=== PATIENT | female | born 1995 | race Caucasian/White ===

== ENCOUNTER 2017-12-11 12:54 | Emergency (ER) | payer OTHER ==
[~2017-12-11] VITALS: Ht 162.6 cm; Wt 58.1 kg
[2017-12-11 13:02] VITALS: TEMP 36.6; Ht 162.6 cm; Wt 58.1 kg
[2017-12-11] MEDS ORDERED: SODIUM CHLORIDE 0.9% 1000ML 1,000 ML IV STA (13:18)
[2017-12-11] MEDS ORDERED: ONDANSETRON INJ 2 MG/ML 2 ML VIAL IV STA (13:18)
[2017-12-11] MEDS ORDERED: FAMOTIDINE 20MG/5ML IV PUSH IV STA (13:18)
--- NOTE | 2017-12-11 13:27 | EMERGENCY ROOM VISIT NOTE ---
History Report prepared by Ayana: Priya Urrutia Under the Supervision of: Dr. Theo Ortez M.D. First contact with patient: 13:16 Chief Complaint: NAUSEA Stated Complaint: NAUSEA, BURNING STOMACH PAIN CENTRALLY LOCATED Nursing Triage Summary: Pt c/o bad stomach pain "right in the center" Pain began 1 hour ago. Pt associated nausea. Denies n/d/constipation Last BM this am. History of Present Illness The patient is a 22 year old female who presents to the Emergency Room with complaints of persistent mid abdominal pain that began one hour ago. The patient states a history of IBS, noting she gets diarrhea once or twice a week. She notes that her symptoms feel different from when she has IBS, noting she was unable to move earlier due to the severe abdominal pain. The patient states she has been nauseous, but denies vomiting. She denies any dysuria, headaches, cough, or nasal congestion. She reports that she has not had any issues with her gallbladder in the past. The patient reports that her last normal menstrual period was 2 weeks ago. She notes that she is not currently under any stress and denies being diagnosed with reflux in the past. Source of History: patient Onset: one hour ago Position: abdomen (mid) Timing: other (persistent) Associated Symptoms: + nausea, + diarrhea, No headache, No cough Review of Systems See HPI for pertinent positives and negatives. A total of ten systems were reviewed and were otherwise negative. Past Medical & Surgical Medical Problems: (1) Irritable bowel syndrome Social History Smoking Status: Never Smoker Current/Historical Medications Scheduled Control Pills ( Control Pills), 1 TAB PO DAILY Eluxadoline (Viberzi), 1 TAB PO DAILY Famotidine (Pepcid), 20 MG PO BID Ondasetron Odt (Zofran Odt), 4 MG SL Q6H Allergies Coded Allergies: Doxycycline (Unverified Adverse Reaction, Unknown, SEVERE DIARRHEA, 12/11/17 ) Physical Exam Vital Signs Date Time Temp Pulse Resp B/P (MAP) Pulse Ox O2 Delivery O2 Flow Rate FiO2 12/11/17 17:51 78 18 108/64 94 12/11/17 14:55 74 16 108/74 95 12/11/17 13:02 36.6 97 16 123/74 99 Room Air Physical Exam GENERAL: Awake, alert, anxious, well-appearing, in no distress HENT: Dry mucous membranes. Normocephalic, atraumatic. Oropharynx unremarkable. EYES: Normal conjunctiva. Sclera non-icteric. NECK: Supple. No nuchal rigidity. FROM. No JVD. RESPIRATORY: Clear to auscultation. CARDIAC: Regular rate, normal rhythm. Extremities warm and well perfused. Pulses equal. ABDOMEN: Mild epigastric discomfort, no peritoneal signs, negative Davey's signs. Soft, non-distended. No tenderness to palpation. No rebound or guarding. No masses. RECTAL: Deferred. MUSCULOSKELETAL: Chest examination reveals no tenderness. The back is symmetrical on inspection without obvious abnormality. There is no CVA tenderness to palpation. No joint edema. LOWER EXTREMITIES: Calves are equal size bilaterally and non-tender. No edema. No discoloration. NEURO: Normal sensorium. No sensory or motor deficits noted. SKIN: No rash or jaundice noted. Medical Decision & Procedures Laboratory Results 12/11/17 13:43 Red Blood Count 4.70, Mean Corpuscular Volume 88.3, Mean Corpuscular Hemoglobin 29.8, Mean Corpuscular Hemoglobin Concent 33.7, Mean Platelet Volume 9.8, Neutrophils (%) (Auto) 64.3, Lymphocytes (%) (Auto) 26.7, Monocytes (%) (Auto) 7.5, Eosinophils (%) (Auto) 1.1, Basophils (%) (Auto) 0.2, Neutrophils # (Auto) 2.98, Lymphocytes # (Auto) 1.24, Monocytes # (Auto) 0.35, Eosinophils # (Auto) 0.05, Basophils # (Auto) 0.01 12/11/17 13:43 Test 12/11/17 13:43 12/11/17 14:53 White Blood Count 4.64 K/uL (4.8-10.8) Red Blood Count 4.70 M/uL (4.2-5.4) Hemoglobin 14.0 g/dL (12.0-16.0) Hematocrit 41.5 % (37-47) Mean Corpuscular Volume 88.3 fL (80-100) Mean Corpuscular Hemoglobin 29.8 pg (25-34) Mean Corpuscular Hemoglobin Concent 33.7 g/dl (32-36) Platelet Count 142 K/uL (130-400) Mean Platelet Volume 9.8 fL (7.4-10.4) Neutrophils (%) (Auto) 64.3 % Lymphocytes (%) (Auto) 26.7 % Monocytes (%) (Auto) 7.5 % Eosinophils (%) (Auto) 1.1 % Basophils (%) (Auto) 0.2 % Neutrophils # (Auto) 2.98 K/uL (1.4-6.5) Lymphocytes # (Auto) 1.24 K/uL (1.2-3.4) Monocytes # (Auto) 0.35 K/uL (0.11-0.59) Eosinophils # (Auto) 0.05 K/uL (0-0.5) Basophils # (Auto) 0.01 K/uL (0-0.2) RDW Standard Deviation 40.9 fL (36.4-46.3) RDW Coefficient of Variation 12.7 % (11.5-14.5) Immature Granulocyte % (Auto) 0.2 % Immature Granulocyte # (Auto) 0.01 K/uL (0.00-0.02) Erythrocyte Sedimentation Rate 3 mm/hr (0-21) Anion Gap 8.0 mmol/L (3-11) Est Creatinine Clear Calc Drug Dose 99.4 ml/min Estimated GFR () 126.8 Estimated GFR (Non- 109.4 BUN/Creatinine Ratio 14.8 (10-20) Calcium Level 9.1 mg/dl (8.5-10.1) Total Bilirubin 1.2 mg/dl (0.2-1) Direct Bilirubin 0.3 mg/dl (0-0.2) Aspartate Amino Transf (AST/SGOT) 13 U/L (15-37) Alanine Aminotransferase (ALT/SGPT) 19 U/L (12-78) Alkaline Phosphatase 48 U/L (45-117) C-Reactive Protein < 0.29 mg/dl (0-0.29) Total Protein 7.8 gm/dl (6.4-8.2) Albumin 4.1 gm/dl (3.4-5.0) Lipase 134 U/L (73-393) Human Chorionic Gonadotropin, Qual NEG (NEG) Influenza Type A Antigen Neg for Influ A (NEG) Influenza Type B Antigen Neg for Influ B (NEG) Laboratory results reviewed by me Medications Administered Medications (Trade) Dose Ordered Sig/Ashleigh Route Start Time Stop Time Status Last Admin Dose Admin Sodium Chloride 1,000 ml @ 999 mls/hr Q1H1M STAT IV 12/11/17 13:18 12/11/17 14:18 DC 12/11/17 13:50 999 MLS/HR Ondansetron HCl (Zofran Inj) 4 mg NOW STAT IV 12/11/17 13:18 12/11/17 13:25 DC 12/11/17 13:52 4 MG Famotidine (Pepcid 20mg Iv Push) 20 mg ONE STAT IV 12/11/17 13:18 12/11/17 13:25 DC 12/11/17 13:50 20 MG Lidocaine HCl (Viscous Lidocaine 2% Soln) 20 ml STK-MED ONCE .ROUTE 12/11/17 14:50 12/11/17 14:51 DC 12/11/17 14:52 20 ML Al Hydroxide/Mg Hydroxide (Maalox Susp) 30 ml STK-MED ONCE .ROUTE 12/11/17 14:50 12/11/17 14:51 DC 12/11/17 14:52 30 ML ED Course 1321: The patient was evaluated in room C12. A complete history and physical exam was performed. Medical Decision I reviewed the patient's past medical history, medications, and the nursing notes as described above. The patient's presentation and history were concerning for biliary etiology, gastritis, gastroenteritis, IBS, and peptic ulcer. The patient is a 22-year-old woman with a past medical history of IBS on Viberzi presents to the emergency Department with upper abdominal pain, nausea vomiting, diarrhea per hpi. On arrival the patient is anxious appearing but in no distress, afebrile stable vital signs. On exam the patient has mild epigastric and right upper quadrant discomfort but no discrete tenderness. Negative Davey sign. Bedside ultrasound negative for gallstones or pericholecystic fluid. Labs unremarkable including ESR, CRP within normal limits. WBC 4.6 c/w viral illness. Patient initially feeling improved after IV fluids and IV Pepcid. However then had episode of nausea and then several episodes of diarrhea. On reevaluation patient feeling improved from that episode. Given the reassuring lab work, exam and vital signs are likely have an emergent process at this time. Sx most consistent with a gastritis/ gastroenteritis. The patient was given specimen containers for repeat episodes of diarrhea which she can take to [facility] for testing. Plan for [facility] f/u tomorrow. Findings and plan for follow-up reviewed with patient. Patient agreeable and d/c 'd per discharge instructions. Medication Reconcilliation Current Medication List: was personally reviewed by me Blood Pressure Screening Patient's blood pressure: Normal blood pressure Blood pressure disposition: Did not require urgent referral Impression Primary Impression: Upper abdominal pain Additional Impressions: Gastritis Acute gastroenteritis Scribe Attestation The scribe's documentation has been prepared under my direction and personally reviewed by me in its entirety. I confirm that the note above accurately reflects all work, treatment, procedures, and medical decision making performed by me. Departure Information Dispostion Home / Self-Care Prescriptions Ondasetron Odt (ZOFRAN ODT) 4 Mg Tab 4 MG SL Q6H for Nausea, #10 TAB Prov: Bakari Ortiz M.D. 12/11/17 Famotidine (PEPCID) 20 Mg Tab 20 MG PO BID for 7 Days, #14 TAB Prov: Bakari Ortiz M.D. 12/11/17 Referrals No Doctor, Assigned (PCP) Forms HOME CARE DOCUMENTATION FORM, IMPORTANT VISIT INFORMATION Patient Instructions ED Abdominal Pain Unkn Cause, ED Gastritis, My [facility] Additional Instructions Please follow up with [facility] tomorrow for re-evaluation. The cause of your symptoms is unclear at this time but may be due to a gastritis or gastroenteritis Otherwise, your exam, ultrasound, and lab results did not show signs of an emergent condition at this time. Acetaminophen pain and fevers as needed. Zofran as needed for nausea. Pepcid for acid reduction. Drink plenty of fluids to ensure hydration. Return to the emergency department for worsening symptoms as described in the accompanying instructions. Problem Qualifiers
[2017-12-11 13:54] LABS: BASO % 0.2 %; BASO ABS # 0.01 K/uL (0-0.2); EOS % 1.1 %; EOS ABS # 0.05 K/uL (0-0.5); HEMATOCRIT 41.5 % (37-47); IG# 0.01 K/uL (0.00-0.02); LYMPH % 26.7 %; LYMPH ABS # 1.24 K/uL (1.2-3.4); MEAN CELL VOLUME 88.3 fL (80-100); MEAN CORPUSCULAR HEMOGLOBIN 29.8 pg (25-34); MEAN CORPUSCULAR HGB CONC 33.7 g/dl (32-36); MEAN PLATELET VOLUME 9.8 fL (7.4-10.4); MONO % 7.5 %; MONO ABS # 0.35 K/uL (0.11-0.59); NEUT % 64.3 %; NEUT ABS # 2.98 K/uL (1.4-6.5); PLATELET COUNT 142 K/uL (130-400); RED CELL DISTRIBUTION WIDTH CV 12.7 % (11.5-14.5); RED CELL DISTRIBUTION WIDTH SD 40.9 fL (36.4-46.3); WHITE BLOOD COUNT 4.64 K/uL (4.8-10.8)
[2017-12-11 14:11] LABS: ALBUMIN 4.1 gm/dl (3.4-5.0); ALT/SGPT 19 U/L (12-78); AST/SGOT 13 U/L (15-37); BLOOD UREA NITROGEN 12 mg/dl (7-18); CALCIUM 9.1 mg/dl (8.5-10.1); CARBON DIOXIDE 26 mmol/L (21-32); CREATININE 0.78 mg/dl (0.60-1.20); GLUCOSE 93 mg/dl (70-99); LIPASE 134 U/L (73-393); POTASSIUM 3.5 mmol/L (3.5-5.1); SODIUM 139 mmol/L (136-145)
[2017-12-11 14:14] LABS: ALKALINE PHOSPHATASE 48 U/L (45-117); TOTAL PROTEIN 7.8 gm/dl (6.4-8.2)
[2017-12-11] MEDS ORDERED: GI COCKTAIL PO STA (14:23)
[2017-12-11] MEDS ORDERED: BCPILLS PO (14:37)
[2017-12-11] MEDS ORDERED: ELUX1TAB2 PO (14:37)
[2017-12-11] MEDS ORDERED: LIDOCAINE HCL 2% VISC SOLN 20 ML UDC ONE (14:50)
[2017-12-11] MEDS ORDERED: ALUMINUM/MAGNESIUM SUSP 30 ML UDC ONE (14:50)
[2017-12-11 15:35] LABS: INFLUENZA B ANTIGEN Neg for Influ B (NEG)
[2017-12-11] MEDS ORDERED: FAMO20TA9 PO (17:04)
[2017-12-11] MEDS ORDERED: ONDA4TAB10 SL (17:04)
[2017-12-11 17:51] VITALS: BP 108/64; PULSE 78; O2SAT 94
== END 2017-12-11 17:53 | disposition home or self-care (01) ==
LOC: C.EDB 12:56 → C.EDC 17:53
DX: R10.10 Upper abdominal pain, unspecified (principal); K29.70 Gastritis, unspecified, without bleeding; K52.9 Noninfective gastroenteritis and colitis, unspecified; K58.0 Irritable bowel syndrome with diarrhea; Z79.899 Other long term (current) drug therapy